=== PATIENT | male | born 1995 | race Caucasian/White ===

== ENCOUNTER 2021-08-15 11:26 | Emergency (ER) | payer MEDICAID, SELFPAY ==
--- NOTE | ~2021-08-15 | XR_ITS ---
EXAMINATION: XR HAND, RIGHT CLINICAL INFORMATION: Right finger injury COMPARISON: None TECHNIQUE: PA, lateral, and oblique views of the right hand. FINDINGS: The bones and soft tissues are normal. No fracture. Alignment is anatomic. Joint spaces are maintained. No erosions or soft tissue calcifications. XR/XR hand RT 2V IMPRESSION: Normal right hand.
[2021-08-15 11:31] VITALS: PULSE 68; RESP 16; TEMP 37; O2SAT 98; BMI 23.3
--- NOTE | 2021-08-15 11:50 | ED.EXTPRO ---
HPI - Extremity Problem General Chief complaint: Extremity Injury, Upper Stated complaint: middle finger inj Time Seen by Provider: 08/15/21 11:50 History of Present Illness HPI Narrative: Patient complains of right middle finger injury when a window closed on his finger today, no numbness weakness or tingling no other injury Related Data Allergies Allergy/AdvReac Type Severity Reaction Status Date / Time No Known Allergies Allergy Unverified 11/16/19 16:20 Review of Systems Review of Systems: Positive for right middle finger abrasion and pain Negatives no dizziness no weakness no tingling no numbness no head injury no neck pain no back pain no other injury or pain Yes all other systems are reviewed and are negative PMFSH Past Medical History Source: nursing notes reviewed Social History Social History Advance Directives: No Advance Directives Information Provided: No Physical Exam Vital Signs: Vital Signs: Last Vital Signs Temp 98.6 F 08/15/21 11:31 Pulse 68 08/15/21 11:31 Resp 16 08/15/21 11:31 Pulse Ox 98 08/15/21 11:31 O2 Del Method 08/15/21 11:31 BMI result Body Mass Index 23.3 General appearance comfortable no distress Head normocephalic atraumatic Neck is supple Back full range of motion Extremities full range of motion x4 including right middle finger Right middle finger had a dorsal abrasion in the mid phalanx and some tenderness there but it did have full range of motion, no evidence of any tendon impairment, neurovascular intact Course Course Course Narrative: Right hand x-ray was negative no sign of fracture to right middle finger Patient got a tetanus shot The abrasion on the right middle finger was cleansed and irrigated and bandage applied Discharge Plan Discharge Clinical Impression: Contusion of finger, Abrasion of finger Patient Disposition: Home, Self-Care Additional Instructions: The x-ray was normal there was no broken bone The wound was superficial and did not need stitches You got a tetanus shot Return any time for redness swelling any sign of infection Interventions: ED Discharge Assessment Last Done: 08/15/21 13:16 Discharge Date/Time: 08/15/21 13:17
[2021-08-15] MEDS: Diphth,Pertus(ACell),Tet Adult 0.5 ML SYRINGE IM (12:06)
== END 2021-08-15 13:17 | disposition home or self-care (01) ==
PROVIDERS: Emergency Provider Student in an Organized Health Care Education/Training Program
DX: S60.031A Contusion of right middle finger without damage to nail, initial encounter (principal); S60.412A Abrasion of right middle finger, initial encounter; W20.8XXA Other cause of strike by thrown, projected or falling object, initial encounter; Y93.9 Activity, unspecified; Y92.9 Unspecified place or not applicable; Y99.9 Unspecified external cause status
CPT/HCPCS: 73120; 90471; 90715; 99283; 99284